=== PATIENT | female | born 1985 | race African-American/Black ===

== ENCOUNTER 2023-06-29 00:09 | Emergency (ER) | payer SELFPAY ==
[2023-06-29 00:40] VITALS: BP 131/84; PULSE 95; RESP 19; TEMP 98; BMI 53.5
[2023-06-29] MEDS ORDERED: ALBUTEROL SO4 2.5/IPRATROPIUM 0.5 INH SOL 3 ML VIAL.NEB. NEB ONE ×2 (00:54→00:56)
[2023-06-29] MEDS ORDERED: ACETAMINOPHEN 500 MG TABLET (FP) PO ONE (00:55)
[2023-06-29] MEDS ORDERED: ACETAMINOPHEN 500 MG TABLET (FP) ONE (00:59)
[2023-06-29 01:44] LABS: THROAT:GRP A STREP NOT DETECTED (NOTDETECTED)
== END 2023-06-29 01:49 | disposition home or self-care (01) ==
LOC: JER 00:09
PROC: 3E0F7GC Introduction of Other Therapeutic Substance into Respiratory Tract, Via Natural or Artificial Opening (ICD-10-PCS; principal; 2023-06-29)
DX: R07.89 Other chest pain (principal); R51.9 Headache, unspecified; R06.2 Wheezing; B34.9 Viral infection, unspecified; Z20.822 Contact with and (suspected) exposure to COVID-19
CPT/HCPCS: 0241U-QW; 87651; 99283-25